=== PATIENT | male | born 1985 | race Caucasian/White ===

== ENCOUNTER 2018-03-24 17:58 | Emergency (ER) | payer MEDICAID ==
[~2018-03-24] VITALS: Wt 91.4 kg
[2018-03-24 18:07] VITALS: BP 153/104; PULSE 72; RESP 20
[2018-03-24] MEDS ORDERED: IBUP-1542 PO (23:56)
[2018-03-24] MEDS ORDERED: TYL500 PO (23:56)
--- NOTE | 2018-03-25 00:48 | ERD ---
ER Documentation Chief Complaint Chief Complaint mid chest pain/pressure x4 days, numbness left finger HPI 32-year-old male presents for chest pain and headache times 4 days. He states that the chest pain is located in the substernal area, rated 9 out of 10, nonradiating. He describes the pain as sharp. He states that the pain lasts for about half an hour. He denies diaphoresis. The headache is noted to also be 9 out of 10. He states that the pain is located in the posterior side. He states that he has been feeling confused. He took Tylenol for the headache without relief. He states that he has history of headache but is usually not as severe. ROS All systems reviewed and are negative except as per history of present illness. Medications Home Meds Active Scripts Acetaminophen* (Tylenol*) 500 Mg Tab, 500 MG PO Q4H PRN for MILD PAIN LEVEL 1-3, #30 TAB Prov:CARLIE CHRISTENSEN DO 03/24/18 Ibuprofen* (Motrin*) 600 Mg Tab, 600 MG PO Q6H PRN for PAIN AND OR ELEVATED TEMP, #30 TAB Prov:CARLIE CHRISTENSEN DO 03/24/18 Allergies Allergies: Coded Allergies: No Known Drug Allergies (Verified Allergy, Unknown, 03/24/18) PMhx/Soc Medical and Surgical Hx: pt denies Medical Hx, pt denies Surgical Hx Hx Alcohol Use: No Hx Substance Use: No Hx Tobacco Use: No Smoking Status: Never smoker Physical Exam Vitals Vital Signs Date Temp Pulse Resp B/P (MAP) Pulse Ox O2 O2 Flow FiO2 Time Delivery Rate 03/24/18 98.2 72 20 153/104 99 18:07 (120) Physical Exam Const: No acute distress Head: Atraumatic Eyes: Normal Conjunctiva ENT: Normal External Ears, Nose and Mouth. Neck: Full range of motion. No meningismus, no midline tenderness Resp: Clear to auscultation bilaterally Cardio: Regular rate and rhythm, no murmurs, bilateral radial and dorsalis pedis pulses intact Abd: Soft, non tender, non distended. Normal bowel sounds Skin: No petechiae or rashes Back: No midline or flank tenderness Ext: No cyanosis, or edema, 5 out of 5 muscle strength bilateral upper and lower extremities Neur: Awake and alert, bilateral upper and lower extremity sensation intact Psych: Normal Mood and Affect Result Diagram: 03/24/18220803/24/182208 Results 24 hrs Laboratory Tests Test 03/24/18 22:09 White Blood Count 8.3 10^3/ul Red Blood Count 4.78 10^6/ul Hemoglobin 14.6 g/dl Hematocrit 42.4 % Mean Corpuscular Volume 88.7 fl Mean Corpuscular Hemoglobin 30.5 pg Mean Corpuscular Hemoglobin Concent 34.4 g/dl Red Cell Distribution Width 13.1 % Platelet Count 176 10^3/UL Mean Platelet Volume 10.7 fl Immature Granulocytes % 0.500 % Neutrophils % 46.8 % Lymphocytes % 41.4 % Monocytes % 6.6 % Eosinophils % 3.7 % Basophils % 1.0 % Nucleated Red Blood Cells % 0.0 /100WBC Immature Granulocytes # 0.040 10^3/ul Neutrophils # 3.9 10^3/ul Lymphocytes # 3.5 10^3/ul Monocytes # 0.6 10^3/ul Eosinophils # 0.3 10^3/ul Basophils # 0.1 10^3/ul Nucleated Red Blood Cells # 0.0 10^3/ul Sodium Level 144 mmol/L Potassium Level 3.9 mmol/L Chloride Level 103 mmol/L Carbon Dioxide Level 31 mmol/L Anion Gap 10 Blood Urea Nitrogen 15 mg/dl Creatinine 0.60 mg/dl Est Glomerular Filtrat Rate mL/min > 60 mL/min Glucose Level 99 mg/dl Calcium Level 9.6 mg/dl Total Bilirubin 0.1 mg/dl Direct Bilirubin 0.00 mg/dl Indirect Bilirubin 0.1 mg/dl Aspartate Amino Transf (AST/SGOT) 24 IU/L Alanine Aminotransferase (ALT/SGPT) 24 IU/L Alkaline Phosphatase 82 IU/L Total Protein 7.6 g/dl Albumin 4.8 g/dl Globulin 2.80 g/dl Albumin/Globulin Ratio 1.71 Procedures/MDM Medical Decision Making: Differential diagnosis includes but not limited to musculoskeletal chest pain, ACS, pericarditis. Differential diagnosis for patient's headache includes but not limited to subarachnoid hemorrhage, primary headache, meningitis. Patient appear well on examination, nontoxic appearing. Regarding patient's chest pain, EKG was done which showed normal sinus rhythm, there is no ST or T wave changes. Patient does not have any history of cardiac issues, and given patient's young age is low suspicion for ACS. No pericarditis noted on EKG. 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 CBC showed no anemia, no elevated WBC to suggest infection CMP showed no electrolyte abnormalities, renal and liver function were normal. The patient has been having headaches is unclear whether the intracranial arachnoid cyst is the cause of the patient's headache. Given the small size of the arachnoid cyst patient advised to follow-up with his PCP for possible referral to neurology or neurosurgery. Patient given prescription for Motrin and Tylenol. Regarding patient's chest pain, he was advised to follow with his primary care physician for possible referral to cardiology if the chest pain continues. Patient was felt stable for outpatient management. Patient advised to follow up with PCP in 1-2 days. Patient advised to return to ED for new or worsening symptoms. Patient stable on discharge from the ED. Disclaimer: Inadvertent spelling and grammatical errors are likely due to [facility]/dictation software use and do not reflect on the overall quality of patient care. Also, please note that the electronic time recorded on this note does not necessarily reflect the actual time of the patient encounter. Departure Diagnosis: Primary Impression: Intracranial arachnoid cysts Additional Impressions: Headache Chest pain Condition: Fair Patient Instructions: Self-Care for Headaches, Chest Pain, Uncertain Cause Referrals: [facility] YOU HAVE RECEIVED A MEDICAL SCREENING EXAM AND THE RESULTS INDICATE THAT YOU DO NOT HAVE A CONDITION THAT REQUIRES URGENT TREATMENT IN THE EMERGENCY DEPARTMENT. FURTHER EVALUATION AND TREATMENT OF YOUR CONDITION CAN WAIT UNTIL YOU ARE SEEN IN YOUR DOCTORS OFFICE WITHIN THE NEXT 1-2 DAYS. IT IS YOUR RESPONSIBILITY TO MAKE AN APPOINTMENT FOR FOLOW-UP CARE. IF YOU HAVE A PRIMARY DOCTOR --you should call your primary doctor and schedule an appointment IF YOU DO NOT HAVE A PRIMARY DOCTOR YOU CAN CALL OUR PHYSICIAN REFERRAL HOTLINE AT IF YOU CAN NOT AFFORD TO SEE A PHYSICIAN YOU CAN CHOSE FROM THE FOLLOWING [facility] [address] [facility]. [facility] [address] [facility] [facility] [address] [facility] [address] [facility] [address] [facility] [facility]. [address] Additional Instructions: Llame al doctor MAANA y bashir annalisa SAEID PARA DENTRO DE 1[address] [place].Dgale a la secretaria que nosotros le instruimos hacer esta saeid.Avise o llame si skaggs condicin se empeora antes de la saeid. Regresa aqui si peor o no mejor. May need referral to neurology or neurosurgery for intracranial arachnoid cyst. CARLIE CHRISTENSEN DO Mar 25, 2018 00:48
== END 2018-03-25 00:15 | disposition home or self-care (01) ==
LOC: FTE 17:58
DX: G93.0 Cerebral cysts (principal)
CPT/HCPCS: 70450; 80053; 85025; 93005; Z7502